=== PATIENT | male | born 1975 | race African-American/Black ===

== ENCOUNTER 2021-07-08 08:50 | Emergency (ER) | payer BC ==
[2021-07-08 09:56] LABS: SARS-COV-2 RT PCR NEGATIVE (NEGATIVE)
--- NOTE | 2021-07-08 10:02 | ER ---
Nurse's Notes [facility] Name: Josafat Fowler Jr Age: 45 yrs Sex: Male : 1975 Arrival Date: 07/08/2021 Time: 08:51 Bed Waiting Private MD: Diagnosis: Acute upper respiratory infection, unspecified Presentation: 07/08 09:06 Chief complaint: Patient states: Scratchy cough, diarrhea, sweats, body aches, chills ww and nausea that started yesterday. Coronavirus screen: Vaccine status: Patient reports receiving the 2nd dose of the covid vaccine. Client denies travel out of the [place] in the last 14 days. Ebola Screen: Patient denies travel to an Ebola-affected area in the 21 days before illness onset. Initial Sepsis Screen: Does the patient meet any 2 criteria? No. Patient's initial sepsis screen is negative. Does the patient have a suspected source of infection? No. Patient's initial sepsis screen is negative. Risk Assessment: Do you want to hurt yourself or someone else? Patient reports no desire to harm self or others. Onset of symptoms was July 07, 2021. 09:06 Method Of Arrival: Ambulatory ww 09:06 Acuity: KAEL 4 ww Triage Assessment: 09:07 General: Appears in no apparent distress. Behavior is calm, cooperative. Pain: Denies ww pain. EENT: Reports nasal congestion. Neuro: Level of Consciousness is awake, alert, obeys commands, Oriented to person, place, time, situation, Moves all extremities. Gait is steady, Speech is normal. Cardiovascular: Patient's skin is warm and dry. Respiratory: Reports cough that is Airway is patent Respiratory effort is even, unlabored, Respiratory pattern is regular, symmetrical. GI: Reports diarrhea, nausea. : No signs and/or symptoms were reported regarding the genitourinary system. Derm: Skin is intact, is healthy with good turgor. Musculoskeletal: No signs and/or symptoms reported regarding the musculoskeletal system. Historical: - Home Meds: :07 None [Active]; ww - PMHx: :07 None; ww - PSHx: :07 shoulder; ww - Immunization history:: Client reports receiving the 2nd dose of the Covid vaccine. - Social history:: Smoking status: Patient reports the use of cigarette tobacco products, denies chronic smoking, but will smoke occasionally. Screenin:09 Abuse screen: Denies threats or abuse. Denies injuries from another. Nutritional ww screening: No deficits noted. Tuberculosis screening: No symptoms or risk factors identified. Fall Risk None identified. Vital Signs: 09:06 BP 123 / 84; Pulse 84; Resp 18; Temp 98.2; Pulse Ox 100% ; Weight 68.04 kg; Height 5 ww ft. 8 in. (172.72 cm); Pain 0/10; 09:06 Body Mass Index 22.81 (68.04 kg, 172.72 cm) ww ED Course: 08:51 Patient arrived in ED. as 08:58 Elin Goode [facility]NP-C [facility] kb 08:58 Bruno Coronado MD is Attending Physician. kb 09:07 Triage completed. ww 09:07 Arm band placed on right wrist. ww 09:09 COVID swab sent to lab. Flu and/or RSV swab sent to lab. ww 10:13 No provider procedures requiring assistance completed. Patient did not have IV access ww during this emergency room visit. Administered Medications: No medications were administered Outcome: 10:02 Discharge ordered by . kb 10:13 Discharged to home ambulatory. ww 10:13 Condition: stable 10:13 Discharge instructions given to patient, Instructed on discharge instructions, follow up and referral plans. medication usage, safety practices, Demonstrated understanding of instructions, follow-up care, medications. 10:14 Patient left the ED. ww Signatures: Elin Goode FNP-C FNP-Ckb Martinez, Amelia as Skye Magallon, RN RN ww
--- NOTE | 2021-07-08 10:02 | EDPHYS ---
Physician Documentation [facility] Name: Josafat Fowler Jr Age: 45 yrs Sex: Male : 1975 Arrival Date: 07/08/2021 Time: 08:51 Bed Waiting Private MD: ED Physician Bruno Coronado HPI: 07/08 09:18 This 45 yrs old Black Male presents to ER via Ambulatory with complaints of Cough, kb Diarrhea. 09:18 The patient or guardian reports cough, that is intermittent, described as mild, flu kb symptoms, myalgias. Onset: The symptoms/episode began/occurred yesterday. Severity of symptoms: At their worst the symptoms were mild, moderate, in the emergency department the symptoms are unchanged. Modifying factors: The symptoms are alleviated by nothing, the symptoms are aggravated by nothing. Associated signs and symptoms: Pertinent positives: diarrhea, nausea. The patient has not experienced similar symptoms in the past. The patient has not recently seen a physician. Historical: - Home Meds: 09:07 None [Active]; ww - PMHx: 09:07 None; ww - PSHx: 09:07 shoulder; ww - Immunization history:: Client reports receiving the 2nd dose of the Covid vaccine. - Social history:: Smoking status: Patient reports the use of cigarette tobacco products, denies chronic smoking, but will smoke occasionally. ROS: 09:17 Cardiovascular: Negative for chest pain, palpitations, and edema. kb 09:17 Constitutional: Positive for body aches, chills, malaise. 09:17 Respiratory: Positive for cough, Negative for dyspnea on exertion, hemoptysis, orthopnea, pleurisy, shortness of breath, sputum production, wheezing. 09:17 Abdomen/GI: Positive for nausea, diarrhea, Negative for abdominal pain, vomiting. 09:17 All other systems are negative. Exam: 09:16 Constitutional: This is a well developed, well nourished patient who is awake, alert, kb and in no acute distress. Head/Face: Normocephalic, atraumatic. ENT: Moist Mucous membranes Cardiovascular: Regular rate and rhythm with a normal S1 and S2. No gallops, murmurs, or rubs. No pulse deficits. Respiratory: Respirations even and unlabored. No increased work of breathing. Talking in full sentences Abdomen/GI: Soft, non-tender. No distention Skin: Warm, dry with normal turgor. Normal color. MS/ Extremity: Pulses equal, no cyanosis. Neurovascular intact. Full, normal range of motion. Neuro: Awake and alert, GCS 15, oriented to person, place, time, and situation. Moves all extremities. Normal gait. Psych: Awake, alert, with orientation to person, place and time. Behavior, mood, and affect are within normal limits. Vital Signs: 09:06 BP 123 / 84; Pulse 84; Resp 18; Temp 98.2; Pulse Ox 100% ; Weight 68.04 kg; Height 5 ww ft. 8 in. (172.72 cm); Pain 0/10; 09:06 Body Mass Index 22.81 (68.04 kg, 172.72 cm) ww MDM: 09:09 Patient medically screened. kb 09:16 Data reviewed: vital signs, nurses notes. Data interpreted: Pulse oximetry: on room air kb is 100 %. Interpretation: normal. 10:01 Counseling: I had a detailed discussion with the patient and/or guardian regarding: the kb historical points, exam findings, and any diagnostic results supporting the discharge/admit diagnosis, lab results, the need for outpatient follow up, a family practitioner, to return to the emergency department if symptoms worsen or persist or if there are any questions or concerns that arise at home. 07/08 09:09 Order name: COVID-19/FLU A+B (Document "Date of Onset" if Symptomatic) kb 07/08 09:10 Order name: COVID-19/FLU A+B; Complete Time: 10:00 EDMS Administered Medications: No medications were administered Disposition: 11:15 Co-signature as Attending Physician, Bruno Coronado MD I agree with the assessment and kdr plan of care. Disposition Summary: 07/08/21 10:02 Discharge Ordered Location: Home kb Condition: Stable kb Diagnosis - Acute upper respiratory infection, unspecified kb Followup: kb - With: Private Physician - When: 2 - 3 days - Reason: Recheck today's complaints, Continuance of care, Re-evaluation by your physician Followup: kb - With: Emergency Department - When: As needed - Reason: Worsening of condition Discharge Instructions: - Discharge Summary Sheet kb - Upper Respiratory Infection, Adult, [id number] kb - Viral Respiratory Infection, [id number] kb Forms: - Medication Reconciliation Form kb - Thank You Letter kb - Work release form kb - Antibiotic Education kb - Prescription Opioid Use kb Signatures: Dispatcher [employer] Elin Gage FNP-C FNP-Ckb Rittger, Kevin, MD MD kdr Wood, Whitney RN RN ww
[2021-07-08 10:36] VITALS: BP 123/84; TEMP 98.2; O2SAT 100
== END 2021-07-08 10:14 | disposition home or self-care (01) ==
LOC: ER 08:50
DX: J06.9 Acute upper respiratory infection, unspecified (principal); Z20.822 Contact with and (suspected) exposure to COVID-19; F17.210 Nicotine dependence, cigarettes, uncomplicated
CPT/HCPCS: 0240U; 99283